=== PATIENT | female | born 1995 | race Caucasian/White ===

== ENCOUNTER 2019-12-20 07:53 | Inpatient (IN) ==
[2019-12-20] MEDS ORDERED: OXYTOCIN 30 UNITS/500 ML BAG IV PRN ×3 (08:08→17:37)
--- NOTE | 2019-12-20 08:13 | History & Physical Report ---
Date of Service December 20, 2019 Assessment & Plan (1) Encounter for elective induction of labor: (2) Post term over 40 weeks: admit, iv, labs. pt is sure she wants to proceed with induction, aware it is elective. will start pitocin and plan arom. fhts reassuring but not on long enough to characterize. Admission and Anticipated Discharge Date Admission Date: December 20, 2019 History of Present Illness Chief Complaint: planned elective induction Primary Care Provider: NO PCP 24yo at 40+wks imer presents to L&D for planned elective induction. She denies ctx, rom or vb. +FM. PNC uncomplicated. PNL rh pos, ri, gbs neg, covid test neg. OBH: g1 GYNH: nl paps, no stds. Allergies Allergy/AdvReac Type Severity Reaction Status Date / Time No Known Allergies Allergy Verified 12/16/19 10:38 Home Medications Home Medications Medication Instructions Recorded Confirmed Type prenat.vits,joshua,xff-[id number] 1 tab PO DAILY 05/12/19 12/16/19 History Patient History Medical History (Updated 12/20/19 @ 08:12 by Patti Painter MD, FACOG) Varicella vaccination Family History (Updated 05/12/19 @ 09:27 by Sariah Aviles) Grandmother (Maternal) Ovarian cancer Social History (Updated 05/12/19 @ 08:53 by Sariah Aviles) Smoking Status: Never smoker Hx Alcohol Use: No Hx Substance Use: No marital status: marital status details: edie Quintero [phone] Current Living Situation: Significant Other Current Living Situation Comment: lives with susie irizarry-edie changing litter current occupational status: employed 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 Review of Systems per hpi Physical Exam Constitutional: WD/WN, vitals as above Respiratory: normal respiratory effort, lungs clear to auscultation Cardiovascular: Rate/Rhythm: regular rate and regular rhythm Gastrointestinal (Abdomen): Percussion/Palpation: abdomen soft (gravid); abdomen nontender Musculoskeletal: no edema Neurologic: grossly normal Psychiatric: A+Ox3, euthymic affect Genitourinary: OB Exam Abdomen: + vertex and + estimated weight (7.5#) Manual OB Exam: + cervical dilation (3), + cervical effacement (70) and + station -2 OB Exam Monitor Tracing: + external FHT monitor used (130 mod variability), + external uterine monitor used (no ctx) and + normal FHT variability only on monitor x <5min when this note written. Coding Level of Care Code None Diagnoses Encounter for elective induction of labor Z34.90 Post term over 40 weeks O48.0
[2019-12-20 08:51] LABS: Hematocrit (blood only) 34.6 % (37-47); Hemoglobin 11.2 g/dL (12.0-16.0); Mean Corpuscular Hemoglobin 28.6 pg (25-34); Mean Corpuscular Volume 88.5 fL (80-100); Mean Platelet Volume 13.7 fL (7.4-10.4); Platelet Count 154 K/uL (130-400); RDW Coefficient of Variation 13.7 % (11.5-14.5); RDW Standard Deviation 44.2 fL (36.4-46.3); Red Blood Count 3.91 M/uL (4.2-5.4); White Blood Count 8.69 K/uL (4.8-10.8)
[2019-12-20 09:05] LABS: Mean Corpuscular Hgb Conc 32.4 g/dL (32-36)
[2019-12-20] MEDS: LACTATED RINGER'S 1,000 ML IV PRN ×2 (09:27→14:55)
--- NOTE | 2019-12-20 11:42 | Labor Progress Brief Note ---
Date of Service December 20, 2019 Subjective Reason For Note: Routine Evaluation pt not feeling any pain Assessment & Plan (1) Post term over 40 weeks: (2) Encounter for elective induction of labor: will see how arom helps labor, c/w pitocin. reviewed mec stained fluid with pt and she denies questions. fhts categ 1 Admission and Anticipated Discharge Date Admission Date: December 20, 2019 Physical Exam Constitutional: WD/WN, vitals as above Genitourinary: Manual OB Exam: + cervical dilation 3 cm, + cervical effacement 80%, + station -2 and + amniotic fluid (AROM) meconium OB Exam Monitor Tracing: + external FHT monitor used (135 mod variability, reactive), + external uterine monitor used (q3), + category I and + normal FHT variability Results & Data ([facility]) Vital Signs (Past 12 Hours) Vital Signs Temp Pulse Resp BP 12/20/19 11:17 71 120/84 12/20/19 11:16 99.3 F 12/20/19 10:39 78 116/72 12/20/19 09:23 81 121/81 12/20/19 08:12 99.0 F 12/20/19 08:10 92 H 115/78 Coding Level of Care Code None Diagnoses Post term over 40 weeks O48.0 Encounter for elective induction of labor Z34.90
[2019-12-20] MEDS ORDERED: ePHEDrine sulfate 50 MG/ML AMP ONE (14:39)
[2019-12-20] MEDS ORDERED: BUPIVACAINE 0.25% 30 ML VIAL ONE (14:40)
[2019-12-20] MEDS ORDERED: fentaNYL 2MCG/ML ROPIVACAINE 1.25MG/ML 100 ML BAG EPI ONE (14:40)
[2019-12-20] MEDS ORDERED: fentaNYL citrate 100 MCG/2 ML VIAL ONE (14:40)
--- NOTE | 2019-12-20 14:46 | Anesthesiology Consultation ---
Date of Service December 20, 2019 Assessment & Plan (1) Encounter for pre-operative examination: Chart Review Chart Review: Acceptable Risk for Labor Epidural Consults Requested none ASA ASA2 Proposed Anesthesia Anesthesia Type: Labor Epidural Risk / Benefits Reviewed With: PT / POA / Parent / Guardian, Accepts Plan and Informed Consent Obtained History Height/Weight Height: 5 ft 7 in Weight: 86.636 kg Allergies Allergy/AdvReac Type Severity Reaction Status Date / Time No Known Allergies Allergy Verified 12/20/19 09:40 Medications Home Medications Medication Instructions Recorded Confirmed Last Taken prenat.vits,joshua,zkm-fuaw-pgehj 1 tab PO DAILY 05/12/19 12/20/19 12/20/19 06:30 Active Medications Generic Name Dose Route Start Last Admin Trade Name Freq PRN Reason Stop Dose Admin Lactated Ringer's 1,000 mls @ 125 mls/hr 12/20/19 08:08 12/20/19 09:27 Lr IV 12/22/19 08:07 125 mls/hr .Q8H PRN Administration L&D Protocol Protocol Oxytocin 30 units in 500 mls @ 13 mls/hr 12/20/19 08:08 12/20/19 14:00 Pitocin IV 12/22/19 08:07 0.78 units/hr .Q24H PRN 13 mls/hr Labor Induction/Augmentation Titration Protocol 0.78 UNITS/HR Past Medical History Medical History Varicella vaccination Exercise / Class Metabolic Activity II 4-5 Yardwork/Stairs/Walk up hill Past Family History Family History Grandmother (Maternal) Ovarian cancer Past Anesthesia History No Hx of Anesthesia Complications and No Family Hx of Anesthesia Complications History of PONV No Hx of PONV and No Hx of Motion Sickness Social History Smoking Status: Never smoker Hx Alcohol Use: No Hx Substance Use: No Physical Exam Vital Signs Last Vital Signs Temp 99.0 F 12/20/19 13:15 Pulse 86 12/20/19 14:43 Resp 16 12/20/19 13:15 BP 129/90 12/20/19 14:37 Pulse Ox 96 12/20/19 14:43 ENMT Mouth: no dentition abnormality Thyromental Distance: > or= 3.5 Finger Breadths Mallampati Class: II Neck normal visual inspection Respiratory normal respiratory effort Auscultation: lungs clear to auscultation bilaterally Cardiovascular Rate/Rhythm: regular rate and regular rhythm Testing Laboratory Results 12/20/19 08:21
[2019-12-20] MEDS ORDERED: NALOXONE HCL 1 MG in SODIUM CHLORIDE 0.9% 1000ML 1,000 ML IV PRN (15:14)
[2019-12-20] MEDS ORDERED: ONDANSETRON INJ 2 MG/ML 2 ML VIAL IV PRN (15:14)
[2019-12-20] MEDS ORDERED: ePHEDrine sulfate 50 MG/ML AMP IV PRN (15:14)
[2019-12-20] MEDS ORDERED: diphenhydrAMINE 50 MG/ML VIAL IV PRN (15:14)
[2019-12-20] MEDS ORDERED: fentaNYL 2MCG/ML ROPIVACAINE 1.25MG/ML 100 ML BAG EPI PRN (15:14)
[2019-12-20] MEDS ORDERED: NALOXONE HCL 0.4 MG/1 ML VIAL/CARP IV PRN (15:14)
--- NOTE | 2019-12-20 16:18 | Labor Progress Brief Note ---
Date of Service December 20, 2019 Subjective Reason For Note: Routine Evaluation pt now with epidural, feels suprapubic pain Assessment & Plan (1) Post term over 40 weeks: (2) Encounter for elective induction of labor: will begin 2nd stage. fhts categ1. Admission and Anticipated Discharge Date Admission Date: December 20, 2019 Physical Exam Constitutional: WD/WN, vitals as above Genitourinary: Manual OB Exam: + cervical dilation 10 cm, + cervical effacement 100% and + station + 2 OB Exam Monitor Tracing: + external FHT monitor used (135 mod variability reactive), + external uterine monitor used (q2), + category I and + normal FHT variability Results & Data ([facility]) Vital Signs (Past 12 Hours) Vital Signs Temp Pulse Resp BP Pulse Ox 12/20/19 16:16 100 H 134/81 12/20/19 16:13 92 H 96 12/20/19 16:08 77 96 12/20/19 16:03 96 H 98 12/20/19 16:01 91 H 144/85 H 12/20/19 15:58 75 97 12/20/19 15:53 77 97 12/20/19 15:48 85 98 12/20/19 15:45 68 139/86 12/20/19 15:43 92 H 94 12/20/19 15:40 75 130/76 12/20/19 15:38 76 98 12/20/19 15:35 130/79 12/20/19 15:33 76 98 12/20/19 15:30 99.1 F 72 20 133/79 12/20/19 15:28 76 97 12/20/19 15:25 76 128/72 12/20/19 15:23 76 97 12/20/19 15:19 77 127/69 12/20/19 15:18 81 97 12/20/19 15:17 75 133/73 12/20/19 15:15 71 131/73 12/20/19 15:13 84 137/77 96 12/20/19 15:11 94 H 129/81 12/20/19 15:09 95 H 140/81 12/20/19 15:08 98 H 97 12/20/19 15:07 88 134/81 12/20/19 15:06 95 H 85 L 12/20/19 15:04 96 H 141/81 H 12/20/19 15:03 107 H 96 12/20/19 14:58 93 H 98 12/20/19 14:54 96 H 93 12/20/19 14:53 102 H 96 12/20/19 14:48 96 H 96 12/20/19 14:45 88 93 12/20/19 14:43 86 96 12/20/19 14:38 94 H 96 12/20/19 14:37 90 129/90 12/20/19 13:16 73 124/77 12/20/19 13:15 99.0 F 16 12/20/19 12:14 82 129/81 12/20/19 11:17 71 120/84 12/20/19 11:16 99.3 F 20 12/20/19 10:39 78 116/72 12/20/19 09:23 81 121/81 12/20/19 08:12 99.0 F 20 12/20/19 08:10 92 H 115/78 Coding Level of Care Code None Diagnoses Post term over 40 weeks O48.0 Encounter for elective induction of labor Z34.90
[2019-12-20] MEDS ORDERED: ACETAMINOPHEN 325 MG TAB PO PRN (17:37)
[2019-12-20] MEDS ORDERED: IBUPROFEN 600 MG TAB PO PRN (17:37)
[2019-12-20] MEDS ORDERED: oxyCODONE/ACETAMINOPHEN 5mg/325mg TAB PO PRN (17:37)
--- NOTE | 2019-12-20 17:39 | Delivery Summary ---
Vaginal Delivery Summary Date of Service December 20, 2019 The patient dilated to complete and pushed to deliver a viable male infant s 8 and 9 via over intact perineum. Mouth and nose bulb suctioned at perineum. Shoulders and body delivered with ease. Infant was vigorous and crying at . Cord clamped at 30 seconds of life and to maternal abdomen where the cord was then doubly clamped and cut. Placenta delivered spontaneously and intact, three-vessel cord. Hemostasis achieved with dilute pitocin and uterine massage and drainage of the bladder for approximately 50 cc under sterile conditions. Laceration of left labia repaired with 4-0 vicryl and small vaginal laceration reapproximated with 3-0 vicryl for excellent hemostasis. Cervix and sulci intact. EBL 300 cc. Mother and baby stable recovery. [facility] [place] Vaginal Delivery Charge Vaginal Delivery Codes: 79138 global code for the antepartum, delivery, and post-
[2019-12-20] MEDS ORDERED: HYDROCORTISONE ACETATE 25 MG SUPP PR PRN (17:43)
[2019-12-20] MEDS ORDERED: DIPHTHERIA/TETANUS/PERTUSSIS 0.5 ML SYR/VIAL IM ONE (17:43)
[2019-12-20] MEDS ORDERED: BENZOCAINE 20% AER SPR 82.5 GM CAN EXT PRN (17:43)
[2019-12-20] MEDS ORDERED: SUPERCREAM 0.870% 15 GM JAR EXT PRN (17:43)
[2019-12-20] MEDS ORDERED: OXYTOCIN 20 UNITS in LACTATED RINGER'S 1,000 ML IV SCH (18:00)
--- NOTE | 2019-12-20 18:18 | Anesthesia Procedure Note ---
Date of Service December 20, 2019 Anesthesia Post Epidural Note Vital Signs Vital Signs: Temp Pulse Resp BP Pulse Ox 99.1 F 77 20 113/59 L 95 12/20/19 15:30 12/20/19 18:02 12/20/19 18:02 12/20/19 18:02 12/20/19 17:23 Pain Intensity Bilateral Abdomen: Pain Intensity: 4 Notes Mental Status: alert / awake / arousable and participated in evaluation Nausea / Vomiting: adequately controlled Pain: adequately controlled Airway Patency, RR, SpO2: stable & adequate BP & HR: stable & adequate Hydration State: stable & adequate Neuraxial Anesthesia: was administered and sensory block is resolving Anesthetic Complications: no major complications apparent and Pt Satisfied with anesthetic care Epidural: Removed without complications and With tip intact
[2019-12-20] MEDS: DOCUSATE SODIUM 100 MG CAP PO SCH (20:48)
--- NOTE | 2019-12-21 06:16 | Obstetrical Progress Note ---
Date of Service <Keyur Mari MD - Last Filed: 12/21/19 07:52> December 21, 2019 Assessment & Plan <Keyur Mari MD - Last Filed: 12/21/19 07:52> (1) Spontaneous vaginal delivery: Natasha is a 24 y/o female who is now PPD #1 following planned IOL in the setting of post-dates with subsequent at 40-2/7 weeks. - Feels well today. Eating well, voiding well, ambulating well. - Pain well controlled with ibuprofen 600mg Q4H PRN. - Routine PPD care -- promote OOB and ambulation throughout today - After discharge will have [address] Painter. Subjective <Keyur Mari MD - Last Filed: 12/21/19 07:52> Natasha is a 24 y/o female who is now PPD #1 following planned IOL in the setting of post-dates with subsequent at 40-2/7 weeks. Reports feeling well overall this morning. Endorses some abdominal cramping with pain well managed on analgesics. Voiding without difficulty. Tolerating meals well and able to ambulate some. Endorses passing gas but not yet bowel movements. Some persistent lochia with some improvement this morning. Breast feeding. Review of Systems Denies fever, chills, sweats Denies shortness of breath, difficulty breathing, chest pain, palpitations, chest pressure. Denies breast pain. Denies dysuria. Denies headache or changes in vision. Physical Exam <Keyur Mari MD - Last Filed: 12/21/19 07:52> General: Alert, oriented. No acute distress. Cardiac: Regular rate and rhythm, no murmurs/rubs/gallops. Respiratory: Clear to auscultation bilaterally a/p, no wheezes/rales/rhonchi. No increased work of breathing. Symmetrical chest rise. No respiratory distress. Abdomen: Soft, nontender, nondistended. Bowel sounds present. Uterus: Uterine fundus firm, palpable 2 cm below umbilicus. Lower Extremities: No lower extremity edema or swelling. No deep calf pain. Dilshad's negative bilaterally. Results & Data ([facility]) <Keyur Mari MD - Last Filed: 12/21/19 07:52> Vital Signs (Past 12 Hours) Vital Signs Temp Pulse Pulse Resp BP BP 12/21/19 04:40 36.6 C 65 18 111/71 12/20/19 23:20 36.7 C 61 18 107/70 12/20/19 20:27 37.2 C 78 18 118/78 12/20/19 19:38 78 118/70 12/20/19 19:32 37.0 C 18 12/20/19 19:03 74 18 113/65 12/20/19 18:47 72 109/55 L 12/20/19 18:32 74 20 108/55 L 12/20/19 18:17 75 20 116/59 L <Patti Painter MD, FACOG - Last Filed: 12/21/19 07:55> Co-Signing Physician Notes Resident Physician Supervision Note: I was present with Dr. Mari during the history and exam. I discussed the case with the resident and agree with the findings and plan as documented in the note. Any exceptions or clarifications are listed here: pt doing well, eating, voiding, ambulating, bleeding decreasing. . rh pos, ri. ff 2 down mild appropriate tenderness. routine care. stable. Documented By: Patti Painter MD, FACOG Resident Activity Tracking <Keyur Mari MD - Last Filed: 12/21/19 07:52> Resident Involvement: Resident Care Provided Care Provided: Adult Hospital Medicine and OB Delivery
[2019-12-21] MEDS: DOCUSATE SODIUM 100 MG CAP PO SCH ×2 (08:27→21:08)
--- NOTE | 2019-12-22 05:30 | Obstetrical Progress Note ---
Date of Service <Keyur Mari MD - Last Filed: 12/22/19 06:30> December 22, 2019 Assessment & Plan <Keyur Mari MD - Last Filed: 12/22/19 06:30> (1) Spontaneous vaginal delivery: Natasha is a 24 y/o female who is now PPD #2 following planned IOL in the setting of post-dates with subsequent at 40-2/7 weeks. - Feels well today. Eating well, voiding well, ambulating well. - Pain well controlled with ibuprofen 600mg Q4H PRN. - Routine PPD care -- promote OOB and ambulation throughout today - After discharge will have [address] Painter. - Anticipate d/c today Subjective <Keyur Mari MD - Last Filed: 12/22/19 06:30> Natasha is a 24 y/o female who is now PPD #2 following planned IOL in the setting of post-dates with subsequent at 40-2/7 weeks. Reports feeling well overall this morning. Endorses some abdominal cramping with pain well managed on analgesics. Voiding without difficulty - does endorse some frequency without dysuria/urgency. Tolerating meals well and able to ambulate some. Endorses passing gas but not yet bowel movements. Some persistent lochia with some improvement this morning. Breast feeding. Review of Systems Denies fever, chills, sweats Denies shortness of breath, difficulty breathing, chest pain, palpitations, chest pressure. Denies breast pain. Denies dysuria. Denies headache or changes in vision. Physical Exam <Keyur Mari MD - Last Filed: 12/22/19 06:30> General: Alert, oriented. No acute distress. Cardiac: Regular rate and rhythm, no murmurs/rubs/gallops. Respiratory: Clear to auscultation bilaterally a/p, no wheezes/rales/rhonchi. No increased work of breathing. Symmetrical chest rise. No respiratory distress. Abdomen: Soft, nontender, nondistended. Bowel sounds present. Uterus: Uterine fundus firm, palpable 3 cm below umbilicus. Lower Extremities: No lower extremity edema or swelling. No deep calf pain. Dilshad's negative bilaterally. Results & Data ([facility]) <Keyur Mari MD - Last Filed: 12/22/19 06:30> Vital Signs (Past 12 Hours) Vital Signs Temp Pulse Resp BP BP Pulse Ox 12/21/19 23:00 36.8 C 80 16 120/77 98 12/21/19 19:45 36.4 C L 86 16 122/75 98 <Dulce Maria Lucio MD - Last Filed: 12/22/19 07:03> Co-Signing Physician Notes I have reviewed the resident's note and examined the patient myself, and agree with the note above. Resident Activity Tracking <Keyur Mari MD - Last Filed: 12/22/19 06:30> Resident Involvement: Resident Care Provided Care Provided: Adult Hospital Medicine and OB Delivery
[2019-12-22] MEDS: DOCUSATE SODIUM 100 MG CAP PO SCH (07:55)
== END 2019-12-22 15:20 | disposition home or self-care (01) | DRG 807 ==
LOC: 4S1 08:06 → 4S2 20:16